=== PATIENT | male | born 1995 | race American Indian/Alaskan Native ===

== ENCOUNTER 2021-01-20 22:18 | Emergency (ER) | payer SELFPAY ==
[2021-01-20 22:28] VITALS: BP 138/75
[2021-01-20] MEDS ORDERED: SODIUM CHLORIDE 0.9% 1000 ML 1,000 ML IV ONE (22:39)
--- NOTE | 2021-01-20 22:41 | Emergency Department Report ---
- General Chief complaint: Weakness Stated complaint: GENERALIZED WEAKNESS Time Seen by Provider: 01/20/21 22:25 Source: patient, EMS Mode of arrival: Stretcher Limitations: No Limitations - History of Present Illness Initial comments: 25-year-old male presents to the hospital from the nursing home for generalized weakness and bradycardia. Patient was incarcerated for the last 2 to 3 days. He states for the moment he was built he has had generalized weakness which he endorses is is due to his diabetes and dehydration. Patient states that he repeatedly told staff members that he "needed to eat" due to his diabetes however, he was ignored. EMS reports that they were informed by nurse at the scene that patient had alteration mental status due to low heart rate. Patient states that he could not move at all secondary to generalized weakness. Heart rate in the 40s prior to arrival. Patient received 1 L normal saline in route to the hospital with improvement in symptoms. Glucose 114 as per EMS. He does not complain of headache, chest pain, shortness of breath, abdominal pain, nausea, vomiting, or diarrhea. Patient has had poor p.o. intake during his incarceration. He admits to marijuana use but denies other substance abuse Patient diagnosed with diabetes in May 2020 but is not currently on any diabetic medication. States that he was informed to monitor his diet. Patient also has a history anemia which is also treated with diet. Patient is no longer in police custody - Related Data Allergies Allergy/AdvReac Type Severity Reaction Status Date / Time No Known Allergies Allergy Verified 01/20/21 22:27 ED Review of Systems ROS: Stated complaint: GENERALIZED WEAKNESS Other details as noted in HPI Comment: All other systems reviewed and negative ED Past Medical Hx - Past Medical History Hx Diabetes: Yes Additional medical history: Anemia ED Physical Exam - General Limitations: No Limitations - Other Other exam information: General: No acute distress Head: Atraumatic Eyes: normal appearance ENT: Moist mucous membranes Neck: Normal appearance, no midline tenderness Chest: Clear to auscultation bilaterally CV: Bradycardic regular rhythm Abdomen: Soft, normal bowel sounds, nontender, nondistended, no rebound or guarding Back: Normal inspection Extremity: Normal inspection, full range of motion Neuro: Alert O x 3, no facial asymmetry, speech clear, no gross motor sensory deficit Psych: Appropriate behavior Skin: No rash ED Course Vital Signs 01/20/21 01/20/21 01/21/21 22:27 22:32 00:04 Temperature 98.6 F Pulse Rate 54 L 50 L Respiratory 18 18 Rate Blood Pressure 138/75 [Left] O2 Sat by Pulse 100 99 Oximetry ED Medical Decision Making - Lab Data Result diagrams: 01/20/21 22:49 01/20/21 22:49 Lab Results 01/20/21 01/20/21 01/20/21 Range/Units 22:49 22:49 22:49 WBC 4.7 (4.5-11.0) K/mm3 RBC 4.66 (3.65-5.03) M/mm3 Hgb 14.1 (11.8-15.2) gm/dl Hct 42.6 (35.5-45.6) % MCV 91 (84-94) fl MCH 30 (28-32) pg MCHC 33 (32-34) % RDW 12.4 L (13.2-15.2) % Plt Count 136 L (140-440) K/mm3 Lymph % (Auto) 28.8 (13.4-35.0) % [place] % (Auto) 10.6 H (0.0-7.3) % Eos % (Auto) 2.4 (0.0-4.3) % Baso % (Auto) 0.3 (0.0-1.8) % Lymph # (Auto) 1.3 (1.2-5.4) K/mm3 [place] # (Auto) 0.5 (0.0-0.8) K/mm3 Eos # (Auto) 0.1 (0.0-0.4) K/mm3 Baso # (Auto) 0.0 (0.0-0.1) K/mm3 Seg Neutrophils % 57.9 (40.0-70.0) % Seg Neutrophils # 2.7 (1.8-7.7) K/mm3 Sodium 139 (137-145) mmol/L Potassium 3.7 (3.6-5.0) mmol/L Chloride 106.4 (98-107) mmol/L Carbon Dioxide 23 (22-30) mmol/L Anion Gap 13 mmol/L BUN 19 (9-20) mg/dL Creatinine 1.0 (0.8-1.3) mg/dL Estimated GFR > 60 ml/min BUN/Creatinine Ratio 19 % Glucose 136 H (75-100) mg/dL Calcium 9.5 (8.4-10.2) mg/dL Magnesium 2.00 (1.7-2.3) mg/dL Troponin T < 0.010 (0.00-0.029) ng/mL TSH 1.480 (0.270-4.200) mlU/mL Free T4 1.35 (0.76-1.46) ng/dL Urine Color (Yellow) Urine Turbidity (Clear) Urine pH (5.0-7.0) Ur Specific [place] (1.003-1.030) Urine Protein (Negative) mg/dL Urine Glucose (UA) (Negative) mg/dL Urine Ketones (Negative) mg/dL Urine Blood (Negative) Urine Nitrite (Negative) Urine Bilirubin (Negative) Urine Urobilinogen (<2.0) mg/dL Ur Leukocyte Esterase (Negative) Urine WBC (Auto) (0.0-6.0) /HPF Urine RBC (Auto) (0.0-6.0) /HPF Urine Mucus /HPF Urine Opiates Screen Urine Methadone Screen Ur Barbiturates Screen Ur Phencyclidine Scrn Ur Amphetamines Screen U Benzodiazepines Scrn Urine Cocaine Screen U Marijuana (THC) Screen Drugs of Abuse Note 01/20/21 01/20/21 Range/Units 23:01 23:01 WBC (4.5-11.0) K/mm3 RBC (3.65-5.03) M/mm3 Hgb (11.8-15.2) gm/dl Hct (35.5-45.6) % MCV (84-94) fl MCH (28-32) pg MCHC (32-34) % RDW (13.2-15.2) % Plt Count (140-440) K/mm3 Lymph % (Auto) (13.4-35.0) % [place] % (Auto) (0.0-7.3) % Eos % (Auto) (0.0-4.3) % Baso % (Auto) (0.0-1.8) % Lymph # (Auto) (1.2-5.4) K/mm3 [place] # (Auto) (0.0-0.8) K/mm3 Eos # (Auto) (0.0-0.4) K/mm3 Baso # (Auto) (0.0-0.1) K/mm3 Seg Neutrophils % (40.0-70.0) % Seg Neutrophils # (1.8-7.7) K/mm3 Sodium (137-145) mmol/L Potassium (3.6-5.0) mmol/L Chloride (98-107) mmol/L Carbon Dioxide (22-30) mmol/L Anion Gap mmol/L BUN (9-20) mg/dL Creatinine (0.8-1.3) mg/dL Estimated GFR ml/min BUN/Creatinine Ratio % Glucose (75-100) mg/dL Calcium (8.4-10.2) mg/dL Magnesium (1.7-2.3) mg/dL Troponin T (0.00-0.029) ng/mL TSH (0.270-4.200) mlU/mL Free T4 (0.76-1.46) ng/dL Urine Color Yellow (Yellow) Urine Turbidity Clear (Clear) Urine pH 6.0 (5.0-7.0) Ur Specific [place] 1.028 (1.003-1.030) Urine Protein <15 mg/dl (Negative) mg/dL Urine Glucose (UA) Neg (Negative) mg/dL Urine Ketones 20 (Negative) mg/dL Urine Blood Neg (Negative) Urine Nitrite Neg (Negative) Urine Bilirubin Neg (Negative) Urine Urobilinogen 4.0 (<2.0) mg/dL Ur Leukocyte Esterase Neg (Negative) Urine WBC (Auto) 1.0 (0.0-6.0) /HPF Urine RBC (Auto) 3.0 (0.0-6.0) /HPF Urine Mucus 1+ /HPF Urine Opiates Screen Presumptive negative Urine Methadone Screen Presumptive negative Ur Barbiturates Screen Presumptive negative Ur Phencyclidine Scrn Presumptive negative Ur Amphetamines Screen Presumptive negative U Benzodiazepines Scrn Presumptive negative Urine Cocaine Screen Presumptive negative U Marijuana (THC) Screen Presumptive positive Drugs of Abuse Note Disclamer - EKG Data -: EKG Interpreted by Ne EKG shows normal: sinus rhythm, ST-T waves (No STEMI) Rate: bradycardia (50) - EKG Data 01/20/21 22:47 Prehospital EKG performed at 21:52 EKG shows sinus bradycardia with borderline first-degree AV block rate 55 - Medical Decision Making 25-year-old male presents to the hospital with generalized weakness while incarcerated. UA suggestive of dehydration. No other acute lab abnormality. Patient does have mild bradycardia with normal blood pressure. He feels better after 2 L of IV fluid. Patient endorses a history of diabetes however, no signs of hyper or hypoglycemia. Thyroid function studies within normal range. Outpatient follow-up will be provided Critical Care Time: No Critical care attestation.: If time is entered above; I have spent that time in minutes in the direct care of this critically ill patient, excluding procedure time. ED Disposition Clinical Impression: Generalized weakness, Dehydration, Bradycardia Disposition: HOME / SELF CARE / HOMELESS Is pt being admited?: No Does the pt Need Aspirin: No Condition: Stable Instructions: Dehydration, Adult, [id number], Weakness, Bradycardia, Adult Additional Instructions: Follow-up with your doctor or doctor/clinic provided. Return if symptoms worsen as indicated by your discharge instructions. Referrals: [facility] [Provider Group] - 3-5 Days MARLENE SHEPARD MD [Staff Physician] - 3-5 Days ANCA CALHOUN MD [Staff Physician] - 3-5 Days (English Faculty Member) Time of Disposition: 00:12
[2021-01-20 23:16] LABS: Basophils % (Auto) 0.3 % (0.0-1.8); Eosinophils # (Auto) 0.1 K/mm3 (0.0-0.4); Eosinophils % (Auto) 2.4 % (0.0-4.3); Hematocrit 42.6 % (35.5-45.6); Hemoglobin 14.1 gm/dl (11.8-15.2); Lymphocytes # (Auto) 1.3 K/mm3 (1.2-5.4); Lymphocytes % (Auto) 28.8 % (13.4-35.0); Mean Corpuscular HGB Conc 33 % (32-34); Mean Corpuscular Volume 91 fl (84-94); Monocytes # (Auto) 0.5 K/mm3 (0.0-0.8); Monocytes % (Auto) 10.6 % (0.0-7.3); Platelet Count 136 K/mm3 (140-440); Red Blood Count 4.66 M/mm3 (3.65-5.03); Red Cell Distribution Width 12.4 % (13.2-15.2)
[2021-01-20 23:19] LABS: Bilirubin,Urine NEG (Negative); Blood,Urine NEG (Negative); Color,Urine Yellow (Yellow); Mucus,Urine 1+ /HPF; Protein,Urine <15 mg/dL mg/dL (Negative)
[2021-01-20 23:24] LABS: Amphetamine Screen,Urine PRESUMPTIVE NEGATIVE; Benzodiazepines Screen,Urine PRESUMPTIVE NEGATIVE; Cannabinoid Screen,Urine PRESUMPTIVE POSITIVE; Cocaine Screen,Urine PRESUMPTIVE NEGATIVE; Methadone Screen,Urine PRESUMPTIVE NEGATIVE; Opiate Screen,Urine PRESUMPTIVE NEGATIVE
[2021-01-20 23:34] LABS: BUN/Creatinine Ratio 19; Blood Urea Nitrogen 19 mg/dL (9-20); Calcium 9.5 mg/dL (8.4-10.2); Hemolysis Index 4
[2021-01-20 23:44] LABS: Free T4 (Free Thyroxine) 1.35 ng/dL (0.76-1.46)
--- NOTE | 2021-01-21 09:04 | Electrocardiograph Report ---
[facility] Test Date: 2021-01-20 Test Time: 23:59:43 Pat Name: MADHAV DÍAZ Department: Room: Gender: M Platform Supervisor: : 1995 Requested By: BELEM GAN Order Number: [id number] Reading MD: Thaddeus Gomez Measurements Intervals [place] Rate: 50 P: 59 DE: 192 QRS: 41 QRSD: 91 T: 30 QT: 424 QTc: 388 Interpretive Statements Sinus rhythm ST elev, probable normal early repol pattern No previous ECG available for comparison Electronically Signed On 01-21-2021 9:04:07 EST by Thaddeus Gomez
== END 2021-01-21 00:25 | disposition home or self-care (01) ==
LOC: ED 22:18
DX: E86.0 Dehydration (principal); R53.1 Weakness; R00.1 Bradycardia, unspecified; E11.9 Type 2 diabetes mellitus without complications
CPT/HCPCS: 36415; 80048; 80307; 81001; 83036; 83735; 84439; 84443; 84484; 85025; 93005; 96365; 99284; J7030; Q0162

== ENCOUNTER 2021-03-06 14:07 | Emergency (ER) | payer SELFPAY ==
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
[2021-03-06] MEDS ORDERED: HYDROcodone/ACETAMINOPHEN 5-325 MG TAB PO ONE (18:15)
[2021-03-06 18:16] LABS: Bilirubin,Urine NEG (Negative); Blood,Urine NEG (Negative); Color,Urine Yellow (Yellow); Mucus,Urine FEW /HPF
--- NOTE | 2021-03-06 19:38 | Ultrasound Report ---
Testicular ultrasound INDICATION: Left testicular pain FINDINGS: Right testicle measures 2.6 x 2.0 x 3.0 cm. Left testicle measures 3.6 x 2.1 x 2.8 cm. Epid idymis appears normal. Possible varicocele on the left. Normal arterial and venous flow. IMPRESSION: Possible small varicocele on the left. No other acute findings. Signer Name: David Alcala MD Signed: 03/06/2021 7:34 PM Workstation Name: [id number]
[2021-03-06 20:04] VITALS: BP 120/75
== END 2021-03-06 20:03 | disposition home or self-care (01) ==
LOC: ED 14:07
DX: M79.18 Myalgia, other site (principal); N50.812 Left testicular pain; E11.8 Type 2 diabetes mellitus with unspecified complications; V89.2XXA Person injured in unspecified motor-vehicle accident, traffic, initial encounter; Y93.89 Activity, other specified; Y92.89 Other specified places as the place of occurrence of the external cause; Y99.8 Other external cause status
CPT/HCPCS: 81001; 93975; 99284